=== PATIENT | male | born 1975 | race Caucasian/White ===

== ENCOUNTER → 2016-12-23 | Day surgery (SDC) | payer BC ==
[~2016-12-23] VITALS: Ht 182.8 cm; Wt 104.3 kg
[~2016-12-23] MED LIST: AMOXIL500 MG PO; CYCLOBENZAPRINE10 MG PO; HYDROCODONE BIT1 T11 PO; MELOXICAM7.5 MG PO; MOTRIN800 MG PO; PREDNISONE10 MG PO; TYLENOL W/CODEI1 TA2 PO
--- NOTE | ~2016-12-23 | O ---
[place], [place] OPERATIVE NOTE NAME: [id number] UNIT #: [id number] ROOM: DOCTOR: MAIKEL HATCH MD BIRTHDATE: [birth year] DOS: 12/23/2016 PREOPERATIVE DIAGNOSIS: Elective sterilization. POSTOPERATIVE DIAGNOSIS: Elective sterilization. OPERATION: No scalpel bilateral vasectomy. OPERATIVE FINDINGS: Normal bilateral vas deferens. OPERATIVE PROCEDURE: Patient was placed in the supine position. Genitals were prepped and draped in a sterile manner. Right vas deferens was identified by palpation and fixed subcutaneously. Lidocaine 2% was injected subcutaneously and in the vas sheath. After satisfactory local anesthesia, a pointed hemostat was pierced through the skin and scrotal layers. The vas sheath was identified and delivered out of the incision. A segment of about 1 cm was isolated and cut between two rows of Hemoclips. Lumen of the vas was then cauterized. Hemostasis was achieved throughout the procedure by electrocauterizing the bleeders. After satisfactory hemostasis, the vas was placed back into the scrotum. Similar procedure was performed on the contralateral side through the same incision. Dry dressing was applied. The patient tolerated the procedure well. He was then discharged home in satisfactory condition. POSTOPERATIVE INSTRUCTIONS: 1. Bed rest or in chair with bathroom privileges for the next 24-48 hours. 2. Cold compresses q. 1 hour for 10-15 minutes and as necessary. 3. To ER or call office if you develop temperature over 101 degrees F. 4. To office after one week for followup. 5. Continue use of contraception until azoospermia is established by semen examination on two occasions 4-6 weeks from today. MAIKEL HATCH MD CM:OPRECORD:OPERATIVE NOTE [id number] MAIKEL HATCH MD 12/23/16 1242 interface
[2016-12-23 08:58] VITALS: BP 121/56
[2016-12-23 11:22] VITALS: BP 102/63
[2016-12-23 11:52] VITALS: BP 128/70
== END | disposition home or self-care (01) ==
LOC: SDC 12-17 10:15
DX: Z30.2 Encounter for sterilization (principal); Z82.49 Family history of ischemic heart disease and other diseases of the circulatory system

== ENCOUNTER 2019-07-29 00:22 | Emergency (ER) | payer BC ==
[~2019-07-29] VITALS: Ht 182.8 cm; Wt 108.9 kg
[2019-07-29] MEDS ORDERED: NAPROSYN500 MG PO (01:50)
== END 2019-07-29 02:04 | disposition home or self-care (01) ==
LOC: ED 00:22
DX: M25.561 Pain in right knee (principal); F17.200 Nicotine dependence, unspecified, uncomplicated; X58.XXXA Exposure to other specified factors, initial encounter; Y93.67 Activity, basketball; Y92.89 Other specified places as the place of occurrence of the external cause; Y99.8 Other external cause status

== ENCOUNTER 2019-11-11 01:46 | Emergency (ER) | payer BC ==
[~2019-11-11] VITALS: Ht 182.8 cm; Wt 108.9 kg
[~2019-11-11 01:46] MED LIST changes: +NAPROSYN500 MG PO
[2019-11-11] MEDS ORDERED: 'zithromax250 MG PO (01:59)
== END 2019-11-11 03:10 | disposition home or self-care (01) ==
LOC: ED 01:46
DX: J20.9 Acute bronchitis, unspecified (principal)

== ENCOUNTER 2023-04-08 14:16 | Emergency (ER) | payer BC ==
[~2023-04-08] VITALS: Ht 182.8 cm; Wt 98.9 kg
[~2023-04-08 14:16] MED LIST changes: +'zithromax250 MG PO
[2023-04-08] MEDS ORDERED: AMOXICILLIN500 M3 PO (14:43)
== END 2023-04-08 15:00 | disposition home or self-care (01) ==
LOC: ED 14:16
DX: K02.9 Dental caries, unspecified (principal)

== ENCOUNTER 2023-11-21 12:31 | Emergency (ER) | payer BC ==
[~2023-11-21] VITALS: Ht 182.8 cm; Wt 97.5 kg
[~2023-11-21 12:31] MED LIST changes: +AMOXICILLIN500 M3 PO
== END 2023-11-21 13:43 | disposition home or self-care (01) ==
LOC: ED 12:31
DX: U07.1 COVID-19 (principal)

== ENCOUNTER → 2025-04-22 | Outpatient (CLI) | payer BC | END | disposition home or self-care (01) | LOC: ORTHO 01:24 | PROVIDERS: ATTEND Orthopaedic Surgery | DX: M25.831 Other specified joint disorders, right wrist (principal); M25.531 Pain in right wrist ==

== ENCOUNTER → 2025-05-09 | Outpatient (CLI) | payer BC | END | disposition home or self-care (01) | LOC: ORTHO 01:42 | PROVIDERS: ATTEND Orthopaedic Surgery | DX: M25.512 Pain in left shoulder (principal) ==

== ENCOUNTER 2025-06-09 23:53 | Emergency (ER) | payer BC ==
[~2025-06-09] VITALS: Ht 182.8 cm; Wt 90.7 kg
[2025-06-10] MEDS ORDERED: AMOXICILLIN500 M2 PO (01:54)
[2025-06-10] MEDS ORDERED: AMOXICILLIN 500 MG CAP PO ONE (01:55)
== END 2025-06-10 02:04 | disposition home or self-care (01) ==
LOC: ED 23:53
DX: K02.9 Dental caries, unspecified (principal); Z79.2 Long term (current) use of antibiotics